=== PATIENT | female | born 1980 | race Asian ===

== ENCOUNTER 2024-07-20 11:54 | Emergency (ER) | payer OTHER ==
[~2024-07-20] VITALS: Ht 162.6 cm; Wt 67.2 kg
[2024-07-20 11:58] VITALS: BP 172/93; TEMP 97.7; O2SAT 99
[2024-07-20] MEDS: ceFAZolin SOD 2 GM in IV 1 EA IV ONE ×2 (12:35→17:45)
[2024-07-20] MEDS: ONDANSETRON 4MG 2ML VIAL IV ONE (12:53)
[2024-07-20] MEDS: BOOSTRIX VACCINE (TETANUS/DIPHTH/ACEL. PERTUSSIS) 0.5ML SYR IM ONE (12:53)
[2024-07-20] MEDS: MORPHINE 4 MG/ML 1ML VIAL IV ONE (12:54)
[2024-07-20] MEDS ORDERED: LIDOCAINE 1% MDV 20ML VIAL As Ordered ONE (16:59)
[2024-07-20] MEDS ORDERED: HYDR-3713 PO (17:54)
[2024-07-20] MEDS: LIDOCAINE 1% MDV 20ML VIAL SC ONE (18:05)
== END 2024-07-20 18:29 | disposition home or self-care (01) ==
LOC: M ED 11:54 → M SDC 16:24
DX: S68.626A Partial traumatic transphalangeal amputation of right little finger, initial encounter (principal); W23.1XXA Caught, crushed, jammed, or pinched between stationary objects, initial encounter; Y92.014 Private driveway to single-family (private) house as the place of occurrence of the external cause; Y99.8 Other external cause status
CPT/HCPCS: 26951; 73140; 90471; 90715; 96374; 96375; 96376; 99284; J0665; J0690; J2405

== ENCOUNTER → 2024-08-01 | Outpatient (CLI) | payer OTHER ==
[~2024-08-01] MED LIST: HYDR-3713 PO
== END ==
LOC: M SOG 07:50
PROVIDERS: ATTEND Physician Assistant
DX: M79.644 Pain in right finger(s) (principal); S68.626A Partial traumatic transphalangeal amputation of right little finger, initial encounter